=== PATIENT | female | born 1945 | race Caucasian/White ===

== ENCOUNTER → 2017-04-29 | Outpatient (CLI) | payer MEDICARE ==
[~2017-04-29] MED LIST: CALC-72 PO; DIPH25CA46 PO; FISH1CAP PO; GLUC-88 PO; LEVO50TA5 PO; LISI-170 PO; MULT-658 PO; OMEP20TA62 PO; VIT-3 PO; VITA400C43 PO; ZOLP-413 PO; [UNRECOGNIZED DRUG - OTHER] PO; biotin PO; ginkgo biloba PO; potassium gluconate PO
== END | disposition home or self-care (01) ==
LOC: MERGE 15:39 → CFH 15:39
PROVIDERS: ATTEND Physician Assistant
DX: R07.0 Pain in throat (principal); M54.2 Cervicalgia
CPT/HCPCS: 76536